=== PATIENT | female | born 1985 | race Caucasian/White ===

== ENCOUNTER 2022-01-12 00:14 | Emergency (ER) | payer SELFPAY ==
[~2022-01-12] VITALS: Ht 165.1 cm; Wt 69.0 kg
[2022-01-12] MEDS ORDERED: HYDROCODONE/ACETAMINOPHEN 5/325MG TABLET PO ONE (01:00)
[2022-01-12 01:16] VITALS: BP 130/87
[2022-01-12] MEDS ORDERED: NAPR-681 MT (03:37)
== END 2022-01-12 03:41 | disposition home or self-care (01) ==
LOC: ER 00:14
DX: S70.01XA Contusion of right hip, initial encounter (principal); M79.601 Pain in right arm; W18.30XA Fall on same level, unspecified, initial encounter; Y93.01 Activity, walking, marching and hiking; Y92.89 Other specified places as the place of occurrence of the external cause; Y99.8 Other external cause status
CPT/HCPCS: 73060; 73502; 99284